=== PATIENT | male | born 1955 | race African-American/Black ===

== ENCOUNTER → 2017-10-17 | Outpatient (CLI) | payer MEDICARE ==
[2017-10-17] MEDS: GADOBUTROL 7.5 MMOL/7.5 ML VIAL IV (14:36)
== END | disposition home or self-care (01) ==
LOC: KCIC MRI 13:59
DX: M51.36 Other intervertebral disc degeneration, lumbar region (principal); M48.061 Spinal stenosis, lumbar region without neurogenic claudication; M41.86 Other forms of scoliosis, lumbar region; I25.10 Atherosclerotic heart disease of native coronary artery without angina pectoris; M51.46 Schmorl's nodes, lumbar region; J43.9 Emphysema, unspecified; I10 Essential (primary) hypertension; Z87.891 Personal history of nicotine dependence
CPT/HCPCS: 71250; 72158; A9585

== ENCOUNTER → 2017-10-24 | Outpatient (CLI) | payer MEDICARE ==
[~2017-10-24] MED LIST: IOHEXOL 180 MG/ML 10 ML VIAL.; methylPREDNISolone ACETATE 40 MG/ML VIAL.; methylPREDNISolone ACETATE 80 MG/ML VIAL.
== END | disposition home or self-care (01) ==
LOC: PNCL 10:44
DX: M51.16 Intervertebral disc disorders with radiculopathy, lumbar region (principal); M48.061 Spinal stenosis, lumbar region without neurogenic claudication; I10 Essential (primary) hypertension; M19.90 Unspecified osteoarthritis, unspecified site; F17.210 Nicotine dependence, cigarettes, uncomplicated; Z96.651 Presence of right artificial knee joint; Z98.890 Other specified postprocedural states; Z79.899 Other long term (current) drug therapy; Z72.89 Other problems related to lifestyle
CPT/HCPCS: 62323; J1030; J1040; Q9965

== ENCOUNTER → 2017-11-08 | Outpatient (CLI) | payer MEDICARE ==
[~2017-11-08] MED LIST changes: +LIDOCAINE 1% PF 2 ML VIAL.
== END ==
LOC: PNCL 10:52
DX: M48.061 Spinal stenosis, lumbar region without neurogenic claudication (principal); M51.16 Intervertebral disc disorders with radiculopathy, lumbar region
CPT/HCPCS: 62323; J1030; J1040; Q9965

== ENCOUNTER → 2017-12-01 | Outpatient (CLI) | payer MEDICARE ==
[~2017-12-01] MED LIST changes: -IOHEXOL 180 MG/ML 10 ML VIAL.; -LIDOCAINE 1% PF 2 ML VIAL.; +REGADENOSON 0.4 MG/5 ML DISP.SYRIN. IV; -methylPREDNISolone ACETATE 40 MG/ML VIAL.; -methylPREDNISolone ACETATE 80 MG/ML VIAL.
[2017-12-02] MEDS: REGADENOSON 0.4 MG/5 ML DISP.SYRIN. IV (09:03)
== END | disposition home or self-care (01) ==
LOC: NM 08:57
DX: I25.10 Atherosclerotic heart disease of native coronary artery without angina pectoris (principal); I10 Essential (primary) hypertension; J43.9 Emphysema, unspecified; F17.210 Nicotine dependence, cigarettes, uncomplicated; Z79.899 Other long term (current) drug therapy
CPT/HCPCS: 78452; 93017; 93306; 96374; 96375; 96376; A9500; J2785

== ENCOUNTER → 2018-06-29 | Outpatient (CLI) | payer MEDICARE ==
[~2018-06-29] MED LIST changes: +DOCU-109 PO; +GADOBUTROL 7.5 MMOL/7.5 ML VIAL IV ONE; +HYDR-2761 PO; +HYDR-2765 PO; +LISI-338 PO; +LOSA1TAB19 PO; +METH750T2 PO; +MULT1TAB52 PO; -REGADENOSON 0.4 MG/5 ML DISP.SYRIN. IV; +SIMV10TA3 PO
--- NOTE | 2018-06-29 15:46 | KCIC ---
MRI of the lumbar spine without and with contrast 06/29/2018 CLINICAL HISTORY: Low back pain which radiates down the left leg. TECHNIQUE: Unenhanced T1-weighted and T2-weighted sagittal and axial and inversion recovery sagittal images of the lumbar spine were obtained. After the intravenous administration of 7 cc of Gadavist, enhanced T1-weighted sagittal and axial images of the lumbar spine were obtained. FINDINGS: Comparison study is dated 10/17/2017. Very mild S-shaped curvature of the thoracolumbar spine is seen. Degenerative signal changes and loss of height are seen involving all of the disks of the lumbar spine. Degenerative signal changes are seen within the marrow surrounding these discs. The conus medullaris is within normal limits in morphology, position, and signal characteristics. No area of abnormal contrast enhancement is seen. At the T12-L1 disc space there is mild to moderate generalized disc bulge. This is eccentric to the right. Degenerative changes are seen involving the facet joints bilaterally. There is mild ligamentum flavum hypertrophy bilaterally. These findings when combined result in mild central spinal canal stenosis. No neural foraminal stenosis is seen. At the L1-2 disc space there is a mild to moderate generalized disc bulge. Degenerative changes are seen involving the facet joints bilaterally. There is moderate ligamentum flavum hypertrophy bilaterally. These findings when combined result in mild central spinal canal stenosis. No neural foraminal stenosis is seen. At the L2-3 disc space there is a moderate generalized disc bulge. Degenerative changes are seen involving the facet joints bilaterally. There is moderate ligamentum flavum hypertrophy bilaterally. These findings when combined result in moderate to severe central spinal canal stenosis. Mild to moderate bilateral neural foraminal stenosis is seen. At the L3-4 disc space there is a moderate generalized disc bulge. Degenerative changes are seen involving the facet joints bilaterally. There is moderate ligamentum flavum hypertrophy bilaterally. These findings when combined result in moderate right greater than left central spinal canal stenosis. Mild to moderate right greater than left neural foraminal stenosis is seen. At the L4-5 disc space there is a moderate generalized disc bulge. Degenerative changes are seen involving the facet joints bilaterally. There is moderate to severe ligamentum flavum hypertrophy bilaterally. There is prominence of the posterior epidural fat. These findings when combined result in mild central spinal canal stenosis. Mild to moderate right greater than left neural foraminal stenosis is seen. At the L5-S1 disc space there is a mild generalized disc bulge. Degenerative changes are seen involving the facet joints bilaterally. These findings do not result in significant central spinal canal stenosis. Since the previous examination there has been no significant interval change. IMPRESSION: The changes of degenerative disc disease are seen throughout the lumbar spine. These findings result in mild central spinal canal stenosis at T12-L1 and L1-2, moderate to severe central spinal canal stenosis at L2-3, moderate right greater than left central spinal canal stenosis at L3-4 and mild central spinal canal stenosis at L4-5. Mild to moderate bilateral neural foraminal stenosis is seen at L2-3. Mild to moderate right greater than left neural foraminal stenosis is seen at L3-4 and L4-5. Electronically signed by: Morris Branch MD (06/29/2018 3:42 PM) [facility]
== END | disposition home or self-care (01) ==
LOC: KCIC MRI 09:50
PROVIDERS: ATTEND Neurological Surgery
DX: M48.061 Spinal stenosis, lumbar region without neurogenic claudication (principal); M51.16 Intervertebral disc disorders with radiculopathy, lumbar region; M48.05 Spinal stenosis, thoracolumbar region
CPT/HCPCS: 72158; A9585

== ENCOUNTER → 2018-08-21 | Outpatient (CLI) | payer MEDICARE ==
[~2018-08-21] MED LIST changes: -GADOBUTROL 7.5 MMOL/7.5 ML VIAL IV ONE
--- NOTE | 2018-08-21 16:31 | EKG ---
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
[2018-08-21 16:36] LABS: BASO % 0 % (0-3); EOS # 0.1 x10^3/uL (0.0-0.7); EOS % 2 % (0-3); HEMATOCRIT 38.6 % (39.0-53.0); HEMOGLOBIN 12.7 g/dL (13.0-17.5); LYMPH # 3.2 x10^3/uL (1.0-4.8); LYMPH % 48 % (24-48); MEAN CORPUSCULAR HEMOGLOBIN 28 pg (25-35); MEAN CORPUSCULAR HGB CONC 33 g/dL (31-37); MEAN CORPUSCULAR VOLUME 87 fL (79-100); MONO # 0.5 x10^3/uL (0.0-1.1); MONO % 8 % (0-9); NEUT # 2.8 x10^3uL (1.8-7.7); NEUT % 42 % (31-73); PLATELET COUNT 193 x10^3/uL (140-400); RED BLOOD COUNT 4.46 x10^6/uL (4.30-5.70); RED CELL DISTRIBUTION WIDTH 15.7 % (11.5-14.5); WHITE BLOOD COUNT 6.7 x10^3/uL (4.0-11.0)
[2018-08-21 17:08] LABS: POTASSIUM 3.7 mmol/L (3.5-5.1)
[2018-08-21 17:34] LABS: ALBUMIN 3.7 g/dL (3.4-5.0); ALBUMIN/GLOBULIN RATIO 1.1 (1.0-1.7); CALCIUM 8.6 mg/dL (8.5-10.1); CREATININE 1.3 mg/dL (0.7-1.3); GFR 67.2; TOTAL BILIRUBIN 0.3 mg/dL (0.2-1.0)
== END | disposition home or self-care (01) ==
LOC: SURGPAT 14:35
PROVIDERS: ATTEND Neurological Surgery
DX: M48.061 Spinal stenosis, lumbar region without neurogenic claudication (principal); M47.816 Spondylosis without myelopathy or radiculopathy, lumbar region; R94.31 Abnormal electrocardiogram [ECG] [EKG]; I10 Essential (primary) hypertension
CPT/HCPCS: 36415; 80053; 85025; 87641; 93005

== ENCOUNTER 2018-09-01 07:15 | Observation (INO) | payer MEDICARE ==
--- NOTE | 2018-08-31 12:11 | HP ---
ADMIT DATE: 09/01/2018 DATE OF SURGERY: 09/01/2018 HISTORY OF PRESENT ILLNESS: The patient is a pleasant 63-year-old who I saw in 10/2013 and recommended lumbar surgery for low back, left buttock, posterior thigh and leg pain. At that time, he decided not to have surgery, but currently he has the same if not worse symptoms and would like to proceed with surgery. He notes pain in his lower back, which radiates into his left buttock and posterior thigh. The pain then radiates below his knee to his posterior leg. He feels numbness in his left foot, which is primarily across the dorsum of foot to the left great toe. The problem has been present for about 5 years. He is taking [place] to help control the pain. Bending, lifting or sitting increases his pain. He uses ice to help. He has been taking [place]. He had epidural steroid injections in 10/2017 without benefit. He had physical therapy in the past for the same problem without significant benefit. PAST MEDICAL HISTORY: Arthritis and hypertension. PAST SURGICAL HISTORY: Knee replacement in 2011. FAMILY HISTORY: Hypertension. SOCIAL HISTORY: He is retired. . Exercises weekly. Denies substance abuse. Smokes half pack per day and has for 40 years. Drinks 1 drink daily. Drinks coffee and soda. ALLERGIES: No known drug allergies. CURRENT MEDICATIONS: [place], losartan, simvastatin, Centrum Silver. REVIEW OF SYSTEMS: A 12-point review of systems was obtained and is noncontributory except for that mentioned above. PHYSICAL EXAMINATION: NEUROSURGERY EXAMINATION: GENERAL APPEARANCE: Alert, pleasant, no acute distress. HEAD: Normocephalic and atraumatic. SKIN: Warm and dry. MUSCULOSKELETAL: Lumbar paraspinal muscle bulk is normal, restricted range of motion of lumbar spine, igho-lm-wtpkolay tenderness of lower lumbar spine on palpation, normal range of motion of the lower extremities bilaterally. EXTREMITIES: No clubbing, cyanosis or edema. NEUROLOGIC: Alert and oriented x 3, normal recent and remote memory. Strength 5/5 in bilateral lower extremities, sensory was intact to light touch in bilateral lower extremities except for decrease in the dorsum of his right foot. Reflexes were present and symmetric in the lower extremities bilaterally, positive straight leg raising on the right, negative straight leg raising on the left, normal gait. IMAGING: I reviewed a lumbar MRI scan. On that study, there is moderately severe central canal stenosis again seen at L2-L3. At L3-L4, there is a moderate central canal stenosis present. At L4-L5, there is not central canal stenosis, but there is significant lateral recess stenosis on the left side. ASSESSMENT/ PLAN: At this point, he would like to move forward with surgery. He does have symptoms at this point, which are referable to the L5 nerve root and therefore, my plan is to decompress him at L2-L3 and L3-L4 as well as L4-L5 on the left. I would perform a left direct laminectomy at L2-L3 and L3-L4 as well as a hemilaminotomy and microdecompression at L4-L5 on the left. I spoke with him about the surgery, the risks involved. I spoke about the technique of the surgery and the expected postoperative course. He understands. He would like to go ahead. We will make the arrangements. YAJAIRA DUQUE MD DR: JEFF/corazon JOB#: [id number] / [id number] BRENNA
[2018-09-01] VITALS (8 sets, daily range): BP systolic 95–149; BP diastolic 43–84
[~2018-09-01] VITALS: Ht 170.2 cm; Wt 78.0 kg
[~2018-09-01 07:15] MED LIST changes: +BACITRACIN 50,000 UNIT in IV NORMAL SALINE 1000ML BAG 1,000 ML IRR ONE; -DOCU-109 PO; -HYDR-2765 PO; +HYDROmorphone 2 MG/ML VIAL IV PRN; +IV RINGERS,LACTATED 1000ML 1,000 ML IV SCH; +LIDOCAINE 1% PF 2 ML VIAL. ID PRN; -METH750T2 PO; +MORPHINE SULFATE 2 MG/ML VIAL. IV PRN; +ONDANSETRON PF 4 MG/2 ML VIAL. IV PRN; +PROCHLORPERAZINE 10 MG/2 ML VIAL. IV PRN; +PROPOFOL 100 ML IV ONE; +fentaNYL PF VIAL 100 MCG/2 ML VIAL IV PRN
[2018-09-01] MEDS ORDERED: GELATIN SPONGE SIZE 100. ONE (07:32)
[2018-09-01] MEDS ORDERED: KETOROLAC 60 MG/2 ML INJ FOR OR. ONE (07:32)
[2018-09-01] MEDS ORDERED: BUPIVAC MPF-EPI 0.5%-1:200000 30 ML VIAL. ONE (07:32)
[2018-09-01] MEDS ORDERED: THROMBIN TOPICAL 20,000 UNIT SPRAY.SYRN KIT TP ONE (07:33)
[2018-09-01] MEDS ORDERED: PHENYLEPHRINE 10 MG/ML VIAL. ONE (08:03)
[2018-09-01] MEDS ORDERED: DEXAMETHASONE SOD PHOS 20 MG/5 ML VIAL. ONE (08:03)
[2018-09-01] MEDS ORDERED: MIDAZOLAM HCL/PF 2 MG/2 ML VIAL. ONE (08:03)
[2018-09-01] MEDS ORDERED: ROCURONIUM 50 MG/5 ML VIAL. ONE (08:03)
[2018-09-01] MEDS ORDERED: ONDANSETRON PF 4 MG/2 ML VIAL. ONE (08:03)
[2018-09-01] MEDS ORDERED: PROPOFOL 20 ML IV ONE (08:03)
[2018-09-01] MEDS ORDERED: LIDOCAINE 2% PF 5 ML VIAL. ONE (08:03)
[2018-09-01] MEDS ORDERED: REMIFENTANIL 2 MG VIAL. IV ONE (08:04)
[2018-09-01] MEDS ORDERED: 0.9 % SODIUM CHLORIDE 20 ML VIAL. IJ ONE ×2 (08:04)
[2018-09-01] MEDS ORDERED: GLYCOPYRROLATE 1 MG/5 ML VIAL. ONE (08:59)
[2018-09-01] MEDS ORDERED: DESFLURANE > 120 MINUTES IH ONE (09:27)
[2018-09-01] MEDS ORDERED: POTASSIUM CL 20MEQ D5-0.45NACL 1,000 ML IV SCH (11:39)
[2018-09-01] MEDS ORDERED: MAGNESIUM HYDROXIDE 2,400 MG/30 ML ORAL.SUSP. PO PRN (11:45)
[2018-09-01] MEDS ORDERED: CALCIUM CARBONATE 500 MG TAB.CHEW PO PRN (11:45)
[2018-09-01] MEDS ORDERED: 0.9 % SODIUM CHLORIDE 10 ML DISP.SYRIN. IV PRN (11:45)
[2018-09-01] MEDS ORDERED: MAG HYDROX/ALUMINUM HYD/SIMETH 30 ML ORAL.SUSP PO PRN (11:45)
[2018-09-01] MEDS ORDERED: NALOXONE 0.4 MG/ML VIAL. IV PRN (11:45)
[2018-09-01] MEDS ORDERED: ONDANSETRON PF 4 MG/2 ML VIAL. IV PRN (11:45)
[2018-09-01] MEDS ORDERED: HYDROcodone/APAP 7.5/325MG 1 TAB TABLET PO PRN (11:45)
[2018-09-01] MEDS ORDERED: ZOLPIDEM 5 MG TABLET. PO PRN (11:45)
[2018-09-01] MEDS ORDERED: ACETAMINOPHEN 325 MG TABLET. PO PRN (11:45)
[2018-09-01] MEDS ORDERED: diphenhydrAMINE HCL 25 MG CAPSULE PO PRN (11:45)
[2018-09-01] MEDS ORDERED: fentaNYL PF VIAL 100 MCG/2 ML VIAL IV PRN (11:45)
--- NOTE | 2018-09-01 12:35 | NUR ---
Arrived to unit by bed from PACU. Alert and oriented x's 4. No c/o at this time. Able to move all extremities without difficulty. Lower back dressing intact with minimal drainage. Ice pack applied. Pedal pulses+ bilaterally. JOSIE's and KAILA's on bilaterally. IVF's intact and infusing. Oriented to room and controls. Side rails up x's 2 with call light in reach. Spouse and daughter at bedside. Cont. monitor.
[2018-09-01] MEDS: LOSARTAN POTASSIUM 50 MG TABLET. PO SCH (13:04)
[2018-09-01] MEDS: hydroCHLOROthiazide 12.5 MG CAPSULE PO SCH (13:05)
[2018-09-01] MEDS: METHOCARBAMOL 750 MG TABLET PO SCH ×2 (13:42→20:12)
[2018-09-01] MEDS: HYDROcodone/APAP 7.5/325MG 1 TAB TABLET PO PRN ×2 (13:42→20:11)
--- NOTE | 2018-09-01 15:13 | NUR ---
Transferred to room 444 by bed. Report called to Alison KEYES.
--- NOTE | 2018-09-01 17:16 | NUR ---
pt arrived to unit at 1500 via bed from 4S. pt is in stable condition. pt is alert and oriented. pt is not complaining of any pain at this time. pt is on RA. pt has call light within reach. dressing has scant amount of shadowing on dressing. pt has jennifer thigh high robert hose and jennifer jonas's on. will continue to monitor.
[2018-09-01] MEDS: DOCUSATE SODIUM 100 MG CAPSULE. PO SCH (20:12)
[2018-09-01] MEDS ORDERED: SIMVASTATIN 20 MG TABLET PO SCH (21:00)
[2018-09-02 03:00] VITALS: BP 94/51
[2018-09-02] MEDS: HYDROcodone/APAP 7.5/325MG 1 TAB TABLET PO PRN ×2 (03:16→10:37)
[2018-09-02 07:00] VITALS: BP 159/85
[2018-09-02] MEDS ORDERED: MULTIVITAMIN with MINERAL TABLET. PO SCH (09:00)
[2018-09-02] MEDS: hydroCHLOROthiazide 12.5 MG CAPSULE PO SCH (10:31)
[2018-09-02] MEDS: LOSARTAN POTASSIUM 50 MG TABLET. PO SCH (10:31)
[2018-09-02] MEDS: DOCUSATE SODIUM 100 MG CAPSULE. PO SCH (10:31)
[2018-09-02] MEDS: METHOCARBAMOL 750 MG TABLET PO SCH (10:32)
[2018-09-02] MEDS ORDERED: METH750T2 PO (10:40)
[2018-09-02] MEDS ORDERED: HYDR-2765 PO (10:40)
[2018-09-02] MEDS ORDERED: DOCU-109 PO (10:40)
--- NOTE | 2018-09-02 10:43 | SNU/HH DC ---
DISCHARGE WITH HOME HEALTH DISCHARGE INFORMATION: Discharge Date: Sep 02, 2018 Condition on Discharge: Stable CODE STATUS: Code Status: Full HOME HEALTH: Face to Face: I certify this patient is under my care and that I, or a nurse practitioner or physician's advertising assistant working with me, had a face to face encounter that meets the physician face to face encounter requirements with this patient on []. [facility] For: Wound Care Physical Therapy For: Evalulation/Treatment POST DISCHARGE ORDERS: Activity Instructions for Disc: Avoid exertion Bathing Instructions: Shower-keep dressing dry DIET AFTER DISCHARGE: Regular Wound/Incision Care: Ice to area for comfort, Change dressing, Reinforce dressing PRN Other wound/incision instructi: may remove dressing after 48 hours if dry FOLLOW-UP: Follow up with: Dr. Duque in 2 weeks [phone] CERTIFICATION STATEMENT: Certification Statement: Certification Statement: Based on the above finding, I certify that this patient is confined to the home and needs intermittent assisted care, physical therapy and/or speech therapy, or continues to need occupational therapy.~ This patient is under my care, and I have initiated the establishment of the plan of care.~ This patient will be followed by myself or a community physician who will periodically review the plan of care. Home Meds Active Scripts Docusate Sodium (COLACE) 100 Mg Capsule, 100 MG PO BID for constipation, #60 CAP Prov:YAJAIRA DUQUE MD 09/02/18 Methocarbamol (METHOCARBAMOL) 750 Mg Tablet, 750 MG PO TID for muscle spasms, # 60 TAB Prov:YAJAIRA DUQUE MD 09/02/18 Hydrocodone Bit/Acetaminophen (HYDROCODONE-APAP 7.5-325 ) 1 Tab Tablet, 1 TAB PO PRN Q6HRS PRN for PAIN MODERATE, #40 TAB Prov:YAJAIRA DUQUE MD 09/02/18 Reported Medications Multivitamin (MULTIVITAMINS) 1 Each Tablet, 1 EACH PO DAILY for SUPPLEMENT, TAB 08/22/18 Losartan/Hydrochlorothiazide (LOSARTAN-HCTZ 50-12.5 MG TAB) 1 Each Tablet, 1 EACH PO DAILY for CONTROL BP, TAB 08/22/18 Simvastatin (SIMVASTATIN) 10 Mg Tablet, 20 MG PO QHS for CHOLESTEROL CONTROL, # 30 TAB 5 Refills 10/17/17 Discontinued Reported Medications Hydrocodone Bit/Acetaminophen (HYDROCODONE-APAP 5-325 ) 1 Each Tablet, 1 TAB PO PRN Q6HRS PRN for PAIN, TAB 0 Refills 10/24/17 YAJAIRA DUQUE MD Sep 02, 2018 10:43
[2018-09-02 11:00] VITALS: BP 140/76
--- NOTE | 2018-09-02 15:16 | NUR ---
Pt was given all discharge instructions, follow up information, new teaching and prescriptions. Pt is stable. Alert x4. Instructions were given to daughter and significant other, on dressing changes and new medications. Pt will follow up with Dr. Wang in 2 weeks. Pt will return home with his daughter RN, helping with dressing changes. All belongings left with pt at time of discharge. Pt denied the need for home health services at this time. Pt left at 1256, via wheelchair, escorted by hospital ANIMAL KEEPER and family.
--- NOTE | 2018-09-04 17:57 | OP ---
DATE OF SURGERY: 09/01/2018 PREOPERATIVE DIAGNOSIS: Lumbar spinal stenosis, L2-L3, L3-L4 and left L4-L5 with left lumbar radiculopathy. POSTOPERATIVE DIAGNOSIS: Lumbar spinal stenosis, L2-L3, L3-L4 and left L4-L5 with left lumbar radiculopathy. OPERATION PERFORMED: Left direct laminectomy, L2-L3, L3-L4; hemilaminotomy with decompression of dura and nerve root, left L4-L5. The operation was done with EMG monitoring, SSEP monitoring, fluoroscopy, microscopic dissection. SURGEON: Donny Duque M.D. SUCTION DRUM DRIER OPERATOR: LAURA Raman, assisted with the surgery. She assisted with the exposure, the microdecompression as well as the closure. OPERATIVE INDICATIONS: The patient is a very pleasant 63-year-old who developed intractable back and left leg pain, which progressively worsened despite epidural steroid injections and physical therapy. He had above-mentioned findings and imaging studies and I recommended lumbar microsurgery. I did discuss with him the surgery and the risks as well as the technique of the operation. He wished to go ahead. DESCRIPTION OF PROCEDURE: Following general endotracheal anesthesia, the patient was positioned prone on the Suleman table. Lumbar region prepped and draped in standard fashion. JOSIE hose and AV impulse boots were applied for DVT prophylaxis. A microscope was draped. Fluoroscopy was draped and brought into the field. Monitoring was established. Ancef 2 g was given less than 1 hour prior to the initiation of surgery. Using fluoroscopic guidance, an incision was made extending from L2 to L5. I dissected down skin and subcutaneous tissue, reflected the paraspinal muscles and placed a [place] micro disc retractor exposing L2-L3 and L3-L4, brought in the high speed air drill and burred down a generous hemilaminotomy on the left at L2-L3. I tilted the patient away from nh and drilled across the midline and then I peeled and trimmed away thickened ligamentum flavum from medial to laterally and also performed a partial foraminotomy. I palpated the disc which was bulging slightly, but very firm and no discectomy was warranted. I did use small amounts of bone wax as well as a bipolar cautery judiciously and I had an excellent decompression at this level. I performed the identical operation at L3-L4 with the similar findings. Following this, I moved the retractor inferiorly and exposed L4-L5 and again through the microscope, I burred down a very generous hemilaminotomy and partial foraminotomy and then trimmed away thickened ligamentum flavum and widened this with the 2.5 Fehling Kerrison rongeur and then peeled away the thickened ligamentum flavum from medial to lateral and fully decompressed the entire region, removing the ligament. I retracted the root medially there. I coagulated some of the epidural veins, palpated the disc and no discectomy was warranted. At this point, I had an excellent decompression at all 3 levels. I irrigated copiously with antibiotic solution. I then closed the wound in layers with absorbable sutures. The skin was closed with 4-0 subcuticular stitch. The operation went very well and the patient was taken uneventfully to recovery room in excellent condition. I was quite pleased with the surgery. DONNY DUQUE MD DR: JEFF/corazon JOB#: [id number] / [id number] BRENNA
== END 2018-09-02 12:55 | disposition home health service (06) ==
LOC: SURG 07:15 → 4 SOUTHEST 11:25 → 4 NORTH 15:55
PROVIDERS: ADMIT Neurological Surgery; ATTEND Neurological Surgery
DX: M48.062 Spinal stenosis, lumbar region with neurogenic claudication (principal); M54.16 Radiculopathy, lumbar region; M19.90 Unspecified osteoarthritis, unspecified site; I10 Essential (primary) hypertension; Z96.659 Presence of unspecified artificial knee joint; Z82.49 Family history of ischemic heart disease and other diseases of the circulatory system; Z87.891 Personal history of nicotine dependence
CPT/HCPCS: 63047; 63048; 76000; 88304; 88311; 97116; 97162; 97530; A7015; G0378; G0379; G8978; G8979; G8980; J0696; J1100; J1885; J2001; J2250; J2405; J2704; J3490; J7030; J7120

== ENCOUNTER → 2019-05-28 | Outpatient (CLI) | payer MEDICARE ==
[~2019-05-28] MED LIST changes: -BACITRACIN 50,000 UNIT in IV NORMAL SALINE 1000ML BAG 1,000 ML IRR ONE; +DOCU-109 PO; +HYDR-2765 PO; -HYDROmorphone 2 MG/ML VIAL IV PRN; -IV RINGERS,LACTATED 1000ML 1,000 ML IV SCH; -LIDOCAINE 1% PF 2 ML VIAL. ID PRN; +METH750T2 PO; -MORPHINE SULFATE 2 MG/ML VIAL. IV PRN; -ONDANSETRON PF 4 MG/2 ML VIAL. IV PRN; -PROCHLORPERAZINE 10 MG/2 ML VIAL. IV PRN; -PROPOFOL 100 ML IV ONE; +SIMV10TA15 PO; -SIMV10TA3 PO; -fentaNYL PF VIAL 100 MCG/2 ML VIAL IV PRN
--- NOTE | 2019-05-28 09:29 | CARD ---
MR#: [id number] Date of Study: 05/28/2019 Ordering Physician: GERA SHIN, Referring Physician: GERA SHIN Tech: Rula Oh RDCS APPROVED REPORT EXAM: Two-dimensional and M-mode echocardiogram with Doppler and color Doppler. Other Information Quality : Good INDICATION Chest Pain 2D DIMENSIONS RVDd2.4 (2.9-3.5cm)Left Atrium(2D)3.0 (1.6-4.0cm) IVSd0.9 (0.7-1.1cm)Aortic Root(2D)2.5 (2.0-3.7cm) LVDd4.5 (3.9-5.9cm)LVOT Diameter2.0 (1.8-2.4cm) PWd1.0 (0.7-1.1cm)LVDs3.2 (2.5-4.0cm) FS (%) 30.0 %SV53.7 ml LVEF(%)57.4 (>50%) Aortic Valve AoV Peak Bishnu.161.5cm/sAoV VTI28.8cm AO Peak GR.10.4mmHgLVOT Peak Bishnu.114.4cm/s AO Mean GR.4mmHgAVA (VMAX)2.18cm2 GIOVANI (VTI)2.50cm2 Mitral Valve MV E Jkaduhic089.5cm/sMV DECEL OBYB255uk MV A Asbdksej32.6cm/sE/A Ratio2.4 Tricuspid Valve TR P. Jieqlpqb739pr/sRAP NUERXFUW3lmZp TR Peak Gr.45stUaGKWT41nvZf Pulmonary Vein S1 Hcmdrwxk18.1cm/sD2 Cssphhdw18.3cm/s LEFT VENTRICLE The left ventricle is normal size. There is normal left ventricular wall thickness. The left ventricu lar systolic function is normal and the ejection fraction is within normal range. The Ejection Fracti on is 55-60%. There is normal LV segmental wall motion. Transmitral Doppler flow pattern is Grade II- pseudonormal filling dynamics. RIGHT VENTRICLE The right ventricle is normal size. The right ventricular systolic function is normal. ATRIA The left atrium size is normal. The right atrium size is normal. The interatrial septum is intact wit h no evidence for an atrial septal defect or patent foramen ovale as noted on 2-D or Doppler imaging. AORTIC VALVE The aortic valve is calcified but opens well. Doppler and Color Flow revealed no significant aortic r egurgitation. There is no significant aortic valvular stenosis. MITRAL VALVE The mitral valve is calcified but opens well. Mitral annular calcification is mild. There is no evide nce of mitral valve prolapse. There is no mitral valve stenosis. Doppler and Color-flow revealed trac e to mild mitral regurgitation. TRICUSPID VALVE The tricuspid valve is normal in structure and function. Doppler and Color Flow revealed trace to mil d tricuspid regurgitation. The PA pressure was estimated at 27 mmHg. There is no tricuspid valve sten osis. PULMONIC VALVE The pulmonic valve is not well visualized. Doppler and Color Flow revealed mild pulmonic valvular reg urgitation. There is no pulmonic valvular stenosis. GREAT VESSELS The aortic root is normal in size. The ascending aorta is normal in size. The IVC is normal in size a nd collapses >50% with inspiration. PERICARDIAL EFFUSION There is no evidence of significant pericardial effusion. Critical Notification Critical Value: No <Conclusion> The left ventricle is normal size. The left ventricular systolic function is normal and the ejection fraction is within normal range. The Ejection Fraction is 55-60%. Doppler and Color Flow revealed no significant aortic regurgitation. There is no significant aortic valvular stenosis. Doppler and Color-flow revealed trace to mild mitral regurgitation. Doppler and Color Flow revealed trace to mild tricuspid regurgitation. The PA pressure was estimated at 27 mmHg. Signed by : Lucien Rubio MD Electronically Approved : 05/28/2019 09:29:28
--- NOTE | 2019-05-28 11:54 | RAD ---
MR#: [id number] Date of Study: 05/28/2019 Ordering Physician: GERA SHIN, Referring Physician: SIRENA KWONG Tech: RT Mary Alice (Jessy) (N) APPROVED REPORT Test Type: Exercise Stress Nurse/Tech: Dorcas Severino R.N. Test Indications: chest pain Cardiac History: htn, smoker Medications: see ehr Medical History: see ehr Resting ECG: sb Resting Heart Rate: 49 bpm Resting Blood Pressure: 116/67mmHg Nurse/Tech Notes pt c/o chest pressure before exercise, no change throughout, lungs cta, heart tones regular Consent: The procedure was explained to the patient in lay terms. Informed consent was witnessed. Mushtaq eout was entered into [facility]. History and Stress Test performed by FARHANA Sibley Stress Symptoms No chest pain or symptoms. POST EXERCISE Reason for Termination: Reached target heart rate Target HR: Yes Max HR: 136 bpm 88% of Maximum Predicted HR: 155 bpm Exercise duration: 9:15 min:sec, 3 Stage Exercise capacity: 10.0METs Max Blood Pressure: 161/73mmHg Blood Pressure response to exercise: Normal blood pressure response during stress. Heart Rate response to exercise: normal Chest Pain: No. Arrhythmia: No. INTERPRETATION Stress EKG Conclusion: The resting EKG showed a sinus bradycardia with mild nonspecific ST-T wave sruthi nges. The stress EKG showed no significant changes over baseline. No EKG evidence of stressed induced ischemia. Imaging Protocol IMAGE PROTOCOL: Rest Tc-99m/stress Tc-99m 1 day Rest: Stress: Viability: Radiopharm.Tc99m PgszyltohZb42c Sestamibi Dose9.5mCi 28.7mCi Duration 15min. 10min. Img Date 05/28/2019 05/28/2019 Inj-Img Dcdd31eza. 60min. Rest Admin Site:IV - Right AntecubitalAdministrator:FARHANA Sibley Stress Admin Site: IV - Right AntecubitalAdministrator: FARHANA Sibley STRESS DATA End Diast. Vol.76.0mlAv. Heart Rate65.0bpm End Syst. Vol.24.0mlCO Index BSA0.0L/min Myocardial Haiw852.0gEject. Irymcosc18.0% Stress Rates Pk. Fill Rate2.49EDV/secLVtime Pk. Fill 221.34msec Pk. Empty Rate3.64ESV/secLVtime Pk. Myzun086.97msec 1/3 Pk. Fill1.08EDV/sec Stress Scores Regional WT0.00Summed WT0.00 Regional WM0.00Summed WM3.00 LV Perfusion The stress scans showed no significant defects. The rest scans showed no significant defects. Nuclear imaging shows no reversible ischemia or infarct. Wall Motion Left ventricular systolic function was normal with an ejection fraction of 68%. LV Perf. Quant 17 Seg. SSS0.00 17 Seg. SRS1.00 17 Seg. SDS0.00 Stress Defect Extent (% LAD)0.00Rest Defect Extent (% LAD)0.00Rev. Defect Extent (% LAD)0.00 Stress Defect Extent (% LCX) 0.00Rest Defect Extent (% LCX)0.00Rev. Defect Extent (% LCX)0.00 Stress Defect Extent (% RCA)0.00Rest Defect Extent (% RCA)0.00Rev. Defect Extent (% RCA)0.00 Stress Defect Extent (% RICHARD)0.00Rest Defect Extent (% RICHARD)0.00Rev. Defect Extent (% RICHARD)0.00 Conclusion 1. Good exercise tolerance. 2. No chest pain with exertion. 3. No EKG evidence of stressed induced ischemia. 4. Nuclear imaging shows no reversible ischemia or infarct. 5. Normal left ventricular systolic function with an ejection fraction of 68%. 6. Low risk treadmill nuclear stress test. Signed by : Lucien Rubio MD Electronically Approved : 05/28/2019 11:53:31
== END | disposition home or self-care (01) ==
LOC: NM 07:59
PROVIDERS: ATTEND Internal Medicine Cardiovascular Disease
DX: I08.8 Other rheumatic multiple valve diseases (principal); I10 Essential (primary) hypertension; E78.00 Pure hypercholesterolemia, unspecified; Z79.01 Long term (current) use of anticoagulants; Z87.891 Personal history of nicotine dependence
CPT/HCPCS: 78452; 93017; 93306; A9500

== ENCOUNTER → 2019-12-25 | Outpatient (CLI) | payer MEDICARE ==
[~2019-12-25] MED LIST changes: +MULT-445 PO; -MULT1TAB52 PO
--- NOTE | 2019-12-25 12:43 | CARD ---
MR#: [id number] Date of Study: 12/25/2019 Ordering Physician: GERA SHIN, Referring Physician: GERA SHIN Tech: Rula Oh RDCS APPROVED REPORT EXAM: Two-dimensional and M-mode echocardiogram with Doppler and color Doppler. Other Information Quality : Good INDICATION Coronary Artery Calcification on CT 2D DIMENSIONS RVDd2.9 (2.9-3.5cm)Left Atrium(2D)3.0 (1.6-4.0cm) IVSd1.0 (0.7-1.1cm)Aortic Root(2D)2.8 (2.0-3.7cm) LVDd4.8 (3.9-5.9cm)LVOT Diameter2.0 (1.8-2.4cm) PWd0.8 (0.7-1.1cm)LVDs2.4 (2.5-4.0cm) FS (%) 30.0 %SV84.8 ml LVEF(%)60.0 (>50%) Aortic Valve AoV Peak Bishnu.171.1cm/sAoV VTI29.8cm AO Peak GR.11.7mmHgLVOT Peak Bishnu.124.7cm/s LVOT VTI 24.84cmAO Mean GR.5mmHg GIOVANI (VMAX)2.61ut6HOX (VTI)2.60cm2 Mitral Valve MV E Ffennlun127.6cm/sMV DECEL NOTI489pv MV A Ovnilehm32.8cm/sMV QQT44nx E/A Ratio1.8MVA (PHT)5.72cm2 TDI E/Lateral E'9.0E/Medial E'18.7 Tricuspid Valve TR P. Dqltymea677wd/sRAP GJBHXFEP6oiKz TR Peak Gr.58slAoNDJW77loGl Pulmonary Vein S1 Skioaykh44.4cm/sD2 Pyyfawhy84.7cm/s LEFT VENTRICLE The left ventricle is normal size. There is normal left ventricular wall thickness. The left ventricu lar systolic function is normal. The Ejection Fraction is 55-60%. There is normal LV segmental wall m otion. The left ventricular diastolic function and filling is normal for age. RIGHT VENTRICLE The right ventricle is normal size. The right ventricular systolic function is normal. ATRIA The left atrium size is normal. The right atrium size is normal. The interatrial septum is intact wit h no evidence for an atrial septal defect or patent foramen ovale as noted on 2-D or Doppler imaging. AORTIC VALVE The aortic valve is calcified but opens well. Doppler and Color Flow revealed no significant aortic r egurgitation. There is no significant aortic valvular stenosis. MITRAL VALVE The mitral valve is calcified but opens well. There is no evidence of mitral valve prolapse. There is no mitral valve stenosis. Doppler and Color-flow revealed trace mitral regurgitation. TRICUSPID VALVE The tricuspid valve is normal in structure and function. Doppler and Color Flow revealed trace tricus pid regurgitation. The PA pressure was estimated at 21 mmHg. There is no tricuspid valve stenosis. PULMONIC VALVE The pulmonic valve is not well visualized. Doppler and Color Flow revealed trace pulmonic valvular re gurgitation. There is no pulmonic valvular stenosis. GREAT VESSELS The aortic root is normal in size. The ascending aorta is normal in size. The IVC is normal in size a nd collapses >50% with inspiration. PERICARDIAL EFFUSION There is no evidence of significant pericardial effusion. Critical Notification Critical Value: No <Conclusion> The left ventricular systolic function is normal. The Ejection Fraction is 55-60%. There is normal LV segmental wall motion. Trace mitral regurgitation. Trace tricuspid regurgitation. The PA pressure was estimated at 21 mmHg. There is no evidence of significant pericardial effusion. Signed by : Gera Shin, Electronically Approved : 12/25/2019 12:43:01
== END | disposition home or self-care (01) ==
LOC: ECHO 10:43
PROVIDERS: ATTEND Internal Medicine Cardiovascular Disease
DX: I08.0 Rheumatic disorders of both mitral and aortic valves (principal); I25.10 Atherosclerotic heart disease of native coronary artery without angina pectoris
CPT/HCPCS: 93306

== ENCOUNTER 2020-01-30 18:59 | Emergency (ER) | payer MEDICARE ==
[~2020-01-30] VITALS: Ht 170.2 cm; Wt 75.0 kg
[2020-01-30 19:51] VITALS: BP 118/74
[2020-01-30] MEDS ORDERED: LIDOCAINE 1% Multi-Dose 20 ML VIAL. INJ ONE (20:30)
[2020-01-30] MEDS ORDERED: LIDOCAINE/EPI/TETRACAINE TOPICAL GEL 3 ML. TP ONE (20:30)
--- NOTE | 2020-01-30 21:06 | RAD ---
PROCEDURE: FOOT LEFT 3V STUDY DATE: 01/30/2020 CLINICAL INDICATION / HISTORY: Reason: laceration / Spl. Instructions: / History: . TECHNIQUE: AP, lateral and oblique views of the left foot. COMPARISON: None FINDINGS: No fracture or dislocation is identified. The bone density is normal. The joint space widths are maintained, and there are no erosions to suggest an inflammatory arthropathy. Mild irregularity to the soft tissues overlying the first MTP joint is present, suggestive of a laceration. Otherwise no soft tissue abnormality is seen. IMPRESSION: Possible laceration over the first MTP joint. No associated acute osseous abnormality. Electronically signed by: Kyle Murphy MD (01/30/2020 9:03 PM) [facility] [place]
[2020-01-30] MEDS ORDERED: CEPH500T PO (22:34)
--- NOTE | 2020-01-30 22:34 | PHYS DOC ---
Past Medical History Past Medical History: High Cholesterol, Hypertension Past Surgical History: Other Additional Past Surgical Histo: back Smoking Status: Current Every Day Smoker Alcohol Use: Occasionally General Adult EDM: Chief Complaint: LACERATION/AVULSION HPI: HPI: Patient is a 64 year old male who presents to the ED today with left foot and left johnson laceration, patient reports dropping an air compressor accidentally on the right lower extremity. Review of Systems: Review of Systems: Constitutional: Denies fever or chills. [] Musculoskeletal: Denies back pain or joint pain. [] Integument: Reports laceration to the left foot and left johnson Neurologic: Denies headache, focal weakness or sensory changes. [] Psychiatric: Denies depression or anxiety. [] Heart Score: Risk Factors: Risk Factors: DM, Current or recent (<one month) smoker, HTN, HLP, family history of CAD, obesity. Risk Scores: Score 0 - 3: 2.5% MACE over next 6 weeks - Discharge Home Score 4 - 6: 20.3% MACE over next 6 weeks - Admit for Clinical Observation Score 7 - 10: 72.7% MACE over next 6 weeks - Early Invasive Strategies Current Medications: Current Medications Medications (Trade) Dose Ordered Sig/Dwayne Start Time Stop Time Status Last Admin Dose Admin Lidocaine HCl (Lidocaine 1% 20ml Vial) 20 ml 1X ONCE 01/30/20 20:30 01/30/20 20:31 DC 01/30/20 20:30 20 ML Tetracaine/ Epinephrine/ Lidocaine (Let (Djrb-Xhsmuql-Tpyha) Gel) 9 ml 1X ONCE 01/30/20 20:30 01/30/20 20:31 DC 01/30/20 20:30 9 ML Allergies: Allergies: Allergies Coded Allergies Type Severity Reaction Last Updated Verified No Known Drug Allergies 10/17/17 No Physical Exam: PE: Constitutional: Well developed, well nourished, no acute distress, non-toxic appearance. [] Skin: Left distal johnson with a laceration approximately 4 cm long, there is no obvious tendon involvement. Left great toe ventral aspect at the MTP joint with a laceration approximately 6 cm long, there is no obvious tendon involvement. Patient able to flex and extend the left toes. +2 left pedal pulse. Cap refill less than 2 seconds to left toes. Back: No tenderness, no CVA tenderness. [] Extremities: No tenderness, no cyanosis, no clubbing, ROM intact, no edema. [] Neurologic: Alert and oriented X 3, normal motor function, normal sensory function, no focal deficits noted. [] Psychologic: Affect normal, judgement normal, mood normal. [] Current Patient Data: Vital Signs: Vital Signs Date Time Temp Pulse Resp B/P (MAP) Pulse Ox O2 Delivery O2 Flow Rate FiO2 01/30/20 19:51 98.1 65 16 118/74 (89) 97 Room Air 98.1 EKG: EKG: [] Radiology/Procedures: Radiology/Procedures: Laceration/Wound Repair Wound Location: Left great toe and left lower johnson Wound's Depth, Shape: Vertical Wound Length (cm): 4 cm on the left johnson, 6 cm on the left great toe Wound Explored: clean Irrigated w/ Saline (ccs): 500 Betadine Prep?: yes Anesthesia: Let solution then 1% of lidocaine Volume Anesthetic (ccs): 8 cc of let solution and then later on 3 cc of lidocaine Wound Repaired With: Left johnson laceration was repaired with 6 interrupted sutures using three-point 0 Ethilon, left great toe internal lacerations were done with 3.0 Vicryl, interrupted sutures were used. Left great toe exterior laceration was closed with 11 interrupted sutures using 3.0 and five-point 0 Ethilon. The wounds were covered with nonstick dressing Course & Med Decision Making: Course & Med Decision Making Pertinent Labs and Imaging studies reviewed. (See chart for details) [] This is a 64-year-old male patient presenting to the ED today with left lower johnson and left foot lacerations. Left foot x-rays were negative for any acute findings. Lacerations were closed by me as noted in procedures. Wound care instructions and return precautions provided. Tetanus up-to-date. Dragon Disclaimer: Dragon Disclaimer: This electronic medical record was generated, in whole or in part, using a voice recognition dictation system. Departure Departure Impression: Primary Impression: Laceration of left foot Qualified Codes: S91.312A - Laceration without foreign body, left foot, initial encounter Additional Impression: Laceration of left leg Qualified Codes: S81.812A - Laceration without foreign body, left lower leg, initial encounter Disposition: 01 HOME, SELF-CARE Condition: STABLE Referrals: Andres ANDREA MD (PCP) Follow-up with your own doctor or the emergency room in 7 days for stitches removal Patient Instructions: Laceration Care, Adult Additional Instructions: You have lacerations to your left lower extremity. Keep the areas clean and dry. You can shower and wash the area with soap and water but do not soak the areas. Apply Neosporin to the areas twice a day. Follow-up with the ED in 7-10 days for stitches removal. Please return to the ED at any point the wound shows signs of infection including but not limited to increased redness, warmth, yellow drainage from the area or any other concerning symptoms. Take the prescribed antibiotics that was sent to your pharmacy until they are completed. Scripts Cephalexin (CEPHALEXIN) 500 Mg Tablet 1 TAB PO TID, #30 TAB Prov: MACKENZIE TRIPATHI APRN 01/30/20 Justicifation of Admission Dx: Justifications for Admission: Justification of Admission Dx: N/A MACKENZIE TRIPATHI APRN Jan 30, 2020 22:34
== END 2020-01-30 23:42 | disposition home or self-care (01) ==
LOC: ER 18:59
DX: S81.812A Laceration without foreign body, left lower leg, initial encounter (principal); S91.312A Laceration without foreign body, left foot, initial encounter; E78.00 Pure hypercholesterolemia, unspecified; I10 Essential (primary) hypertension; F17.200 Nicotine dependence, unspecified, uncomplicated; W20.8XXA Other cause of strike by thrown, projected or falling object, initial encounter; Y93.89 Activity, other specified; Y92.89 Other specified places as the place of occurrence of the external cause; Y99.8 Other external cause status
CPT/HCPCS: 12004; 73630; 99283; J3490

== ENCOUNTER → 2020-04-10 | Outpatient (CLI) | payer MEDICARE ==
[~2020-04-10] MED LIST changes: +CEPH500T PO
--- NOTE | 2020-04-10 16:10 | KCIC ---
EXAM: Cervical spine, 3 views. HISTORY: Hand numbness. COMPARISON: None. FINDINGS: 3 views of the cervical spine are obtained. There is mild cervical kyphosis. There is minimal retrolisthesis of C6 on C7. There is degenerative endplate remodeling and disc space narrowing predominantly at C4-C5, and to a lesser extent, C5-C6 and C6-C7. There is multilevel facet arthropathy. There is no fracture. IMPRESSION: 1. Multilevel degenerative change involving the cervical spine, primarily at the mid lower cervical levels. 2. No acute osseous finding. Electronically signed by: Cheryl Larson MD (04/10/2020 4:08 PM) [id number]
== END ==
LOC: KCIC 14:32
PROVIDERS: ATTEND Family Medicine
DX: M47.812 Spondylosis without myelopathy or radiculopathy, cervical region (principal); M48.02 Spinal stenosis, cervical region; M43.12 Spondylolisthesis, cervical region; R20.0 Anesthesia of skin
CPT/HCPCS: 72040

== ENCOUNTER → 2020-08-05 | Outpatient (CLI) | payer MEDICARE ==
[~2020-08-05] MED LIST changes: +CHOL500050 PO; +HYDR12.575 PO; -LISI-338 PO; +LISI-517 PO; +LOSA100T14 PO; +METH-562 PO; -METH750T2 PO; +NITR0.4T24 SL
== END ==
LOC: LAB 10:54
PROVIDERS: ATTEND Orthopaedic Surgery
DX: Z01.812 Encounter for preprocedural laboratory examination (principal); G56.03 Carpal tunnel syndrome, bilateral upper limbs; Z20.822 Contact with and (suspected) exposure to COVID-19
CPT/HCPCS: U0003

== ENCOUNTER 2020-08-08 06:10 | Day surgery (SDC) | payer MEDICARE ==
[~2020-08-08] VITALS: Ht 165.1 cm; Wt 78.0 kg
[~2020-08-08 06:10] MED LIST changes: +HYDROmorphone 2 MG/ML VIAL IVP PRN; +IV RINGERS,LACTATED 1000ML 1,000 ML IV SCH; +MORPHINE SULFATE 2 MG/ML VIAL. IVP PRN; +PROCHLORPERAZINE 10 MG/2 ML VIAL. IVP PRN; +fentaNYL PF VIAL 100 MCG/2 ML VIAL IVP PRN
[2020-08-08] MEDS ORDERED: fentaNYL PF VIAL 100 MCG/2 ML VIAL ONE (06:52)
[2020-08-08] MEDS ORDERED: PROPOFOL 10 MG/ML (20ML) VIAL. IV ONE (06:52)
[2020-08-08] MEDS ORDERED: LIDOCAINE 2% PF 5 ML VIAL. ONE (06:52)
[2020-08-08] MEDS ORDERED: BUPIVACAINE-EPI 0.25% 30 ML VIAL KIT. ONE (06:59)
[2020-08-08] MEDS ORDERED: SEVOFLURANE 31 TO 60 MINUTES. IH ONE (07:34)
[2020-08-08] MEDS ORDERED: ONDANSETRON PF 4 MG/2 ML VIAL. ONE (07:34)
[2020-08-08] MEDS ORDERED: ePHEDrine PF IN SALINE 50 MG/10 ML SYRINGE. IV ONE (07:34)
[2020-08-08] MEDS ORDERED: DEXAMETHASONE SOD PHOS 4 MG/ML VIAL ONE (07:34)
--- NOTE | 2020-08-08 07:55 | PDOC4 ---
Operative Note Operative Note DATE: August 08, 2020 PREOPERATIVE DIAGNOSIS Carpal tunnel syndrome, left upper limb G56.02: POSTOPERATIVE DIAGNOSIS: Carpal tunnel syndrome, left upper limb G56.02 PROCEDURES PERFORMED: left wrist, open carpal tunnel release (neuroplasty of the median nerve at the carpal tunnel, CPT 75108 SURGEON: Wesly Pollock MD PALEOLOGY TEACHER: BHARGAVI Duke ANESTHESIA: General ESTIMATED BLOOD LOSS: 10 mL SPECIMENS: none DRAINS: none COMPLICATIONS: none TOURNIQUET: 6 minutes at 250 mm Hg INDICATIONS FOR PROCEDURE: The patient is a 65-year-old with left hand pain and numbness. EMG confirms carpal tunnel syndrome. The patient and I discussed carpal tunnel release surgery along with the potential risks of infection, neurovascular injury, bleeding, persistent or recurrent carpal tunnel syndrome, wound healing problems, or other surgical or anesthetic complications. All of the patients questions about surgery were answered and they desired to proceed. Written consent was obtained. DESCRIPTION OF OPERATION: The patient was identified in the preoperative holding area. The correct left hand was marked by me. The patient was taken to the operating room and positioned supine on the operating table with the left arm extended on an arm board. A tourniquet was placed on the upper left arm. Preoperative antibiotics were given intravenously. A timeout procedure was performed. The limb was prepared in sterile fashion with ChloraPrep solution and sterile drapes were applied. An Esmarch bandage was used to exsanguinate the limb and the tourniquet was inflated to 250 mmHg. A curvilinear incision was made with a 15 blade scalpel, 2mm ulnar to the thenar crease, using landmarks including the thenar crease, Kaplans cardinal line, the ulnar border of the fingernail of the ring finger, the wrist flexion crease, and the palmaris longus tendon. Care was made not to extend this incision beyond Kaplans cardinal line, so as to avoid arterial injury. Loupe magnification (3.5x extended field) was used throughout to prevent neurovascular injury. Sharp dissection was used through the subcutaneous tissues, and the palmaris longus tendon was retracted toward the thumb. Bipolar electrocautery was used for hemostasis. The transverse carpal ligament was identified and was divided under direct vision proximally and distally. Scissor dissection was used proximal to the wrist flexion crease to complete the proximal release of the transverse carpal ligament with the skin elevated away from the dissection. Digital palpation was used proximally and distally, ensuring a complete release. A gentle scissor neuroplasty was now performed along the ulnar aspect of the median nerve, releasing dense adhesions and dense synovium. The left median nerve was thinned. Care was made not to injure the motor branch on the radial aspect. Copious saline irrigation was used. The tourniquet was released. Bipolar electrocautery was used for hemostasis. The skin edges were injected with 0.25% bupivacaine with epinephrine. The skin edges were reapproximated with 3-0 Prolene horizontal mattress sutures. Needle and sponge counts were correct. Xeroform and a sterile dressing were applied. There were no apparent complications. The patient returned to the recovery room in stable condition. WESLY POLLOCK MD Aug 08, 2020 07:55
[2020-08-08] MEDS ORDERED: HYDROcodone/APAP 7.5/325MG 1 TAB TABLET PO PRN ×2 (08:30→08:45)
[2020-08-08] MEDS ORDERED: HYDROcodone/APAP 5/325MG 1 TAB TABLET PO ONE (09:00)
[2020-08-08 09:03] VITALS: BP 116/64
== END 2020-08-08 09:35 | disposition home or self-care (01) ==
LOC: SURG 06:10
PROVIDERS: ATTEND Orthopaedic Surgery
DX: G56.02 Carpal tunnel syndrome, left upper limb (principal); E78.00 Pure hypercholesterolemia, unspecified; I10 Essential (primary) hypertension; M19.90 Unspecified osteoarthritis, unspecified site; F17.210 Nicotine dependence, cigarettes, uncomplicated; Z79.899 Other long term (current) drug therapy; Z98.890 Other specified postprocedural states; Z72.89 Other problems related to lifestyle
CPT/HCPCS: 64721; J0690; J1100; J2405; J2704; J3010

== ENCOUNTER 2021-03-20 07:30 | Day surgery (SDC) | payer MEDICARE ==
[~2021-03-20] VITALS: Ht 165.1 cm; Wt 77.0 kg
[~2021-03-20 07:30] MED LIST changes: +ACETAMINOPHEN 500 MG TABLET PO PRN; +BUPIVACAINE-EPI 0.25%-1:200000 MPF 30 ML VIAL. ONE; -IV RINGERS,LACTATED 1000ML 1,000 ML IV SCH; +MORPHINE SULFATE 2 MG/ML INJ. IVP PRN; -MORPHINE SULFATE 2 MG/ML VIAL. IVP PRN; +ceFAZolin SODIUM IV Push 1 GM VIAL. IVP PRN
[2021-03-20] MEDS: IV RINGERS,LACTATED 1000ML 1,000 ML IV SCH ×2 (08:08→10:24)
[2021-03-20 08:10] VITALS: BP 138/68
[2021-03-20] MEDS ORDERED: DEXAMETHASONE SOD PHOS 4 MG/ML VIAL ONE (08:49)
[2021-03-20] MEDS ORDERED: ONDANSETRON PF 4 MG/2 ML VIAL. ONE (08:49)
[2021-03-20] MEDS ORDERED: SEVOFLURANE 61 TO 120 MINUTES. IH ONE (08:49)
[2021-03-20] MEDS ORDERED: fentaNYL PF VIAL 100 MCG/2 ML VIAL ONE (08:49)
[2021-03-20] MEDS ORDERED: PROPOFOL 10 MG/ML (20ML) VIAL. IV ONE (08:49)
[2021-03-20] MEDS ORDERED: ROCURONIUM 50 MG/5 ML VIAL. ONE (08:49)
[2021-03-20] MEDS ORDERED: LIDOCAINE 2% PF 5 ML VIAL. ONE (08:49)
--- NOTE | 2021-03-20 09:18 | PDOC1 ---
History and Physical Date of Admission Date of Admission DATE: 03/20/21 TIME: 09:13 Identification/Chief Complaint Chief Complaint Painful bulge at the umbilicus Source Source: Patient History of Present Illness History of Present Illness 66-year-old male with complaints of a painful bulge at the umbilicus for several years been getting larger now more painful Past Medical History Cardiovascular: HTN, Hyperlipidemia Pulmonary: No pertinent hx GI: No pertinent hx Heme/Onc: No pertinent hx Hepatobiliary: No pertinent hx Psych: No pertinent hx Musculoskeletal: low back pain Rheumatologic: Rheumatoid arthritis Infectious disease: No pertinent hx ENT: No pertinent hx Renal/: Benign prostatic enlarg. Endocrine: No pertinent hx Dermatology: No pertinent hx Past Surgical History Past Surgical History: Total knee replacement, Other (Hemorrhoidectomy, carpal tunnel release) Family History Family History: No Significant Social History Smoke: No ALCOHOL: none Drugs: None Current Medications Current Medications Current Medications Fentanyl Citrate (Fentanyl 2ml Vial) 25 mcg PRN Q5MIN PRN IVP MILD PAIN 1-3; Start 03/20/21 at 06:00; Stop 03/20/21 at 20:00 Fentanyl Citrate (Fentanyl 2ml Vial) 50 mcg PRN Q5MIN PRN IVP MODERATE PAIN 4- 6; Start 03/20/21 at 06:00; Stop 03/20/21 at 20:00 Morphine Sulfate (Morphine Sulfate) 1 mg PRN Q10MIN PRN IVP SEVERE PAIN 7-10; Start 03/20/21 at 06:00; Stop 03/20/21 at 20:00 Ringer's Solution 1,000 ml @ 30 mls/hr Q24H IV Last administered on 03/20/21at 08:08; Start 03/20/21 at 06:00; Stop 03/20/21 at 17:59 Hydromorphone HCl (Dilaudid) 0.5 mg PRN Q10MIN PRN IVP SEVERE PAIN 7-10, 2nd CHOICE; Start 03/20/21 at 06:00; Stop 03/20/21 at 20:00 Prochlorperazine Edisylate (Compazine) 5 mg PACU PRN PRN IVP NAUSEA, MRX1; Start 03/20/21 at 06:00; Stop 03/20/21 at 20:00 Acetaminophen (Tylenol) 1,000 mg 1X PREOP PRN PO PRIOR TO PROCEDURE Last administered on 03/20/21at 08:08; Start 03/20/21 at 06:00; Stop 03/20/21 at 18:00 Cefazolin Sodium (Ancef) 1 gm 1X PREOP PRN IVP PRIOR TO PROCEDURE; Start 03/20/21 at 06:00; Stop 03/20/21 at 18:00 Bupivacaine HCl/ Epinephrine Bitart (Sensorcaine-Epi 0.25%-1:514667 Mpf) 30 ml STK-MED ONCE .ROUTE ; Start 03/20/21 at 07:15; Stop 03/20/21 at 07:16; Status DC Fentanyl Citrate (Fentanyl 2ml Vial) 100 mcg STK-MED ONCE .ROUTE ; Start 03/20/21 at 08:49; Stop 03/20/21 at 08:49; Status DC Rocuronium Orange (Zemuron) 50 mg STK-MED ONCE .ROUTE ; Start 03/20/21 at 08:49; Stop 03/20/21 at 08:50; Status DC Lidocaine HCl (Lidocaine Pf 2% Vial) 5 ml STK-MED ONCE .ROUTE ; Start 03/20/21 at 08:49; Stop 03/20/21 at 08:50; Status DC Propofol (Diprivan) 200 mg STK-MED ONCE IV ; Start 03/20/21 at 08:49; Stop 03/20/21 at 08:50; Status DC Ondansetron HCl (Zofran) 4 mg STK-MED ONCE .ROUTE ; Start 03/20/21 at 08:49; Stop 03/20/21 at 08:50; Status DC Dexamethasone Sodium Phosphate (Decadron) 4 mg STK-MED ONCE .ROUTE ; Start 03/20/21 at 08:49; Stop 03/20/21 at 08:50; Status DC Sevoflurane (Ultane) 60 ml STK-MED ONCE IH ; Start 03/20/21 at 08:49; Stop 03/20/21 at 08:50; Status DC Active Scripts Active Reported Losartan Potassium 100 Mg Tablet 100 Mg PO DAILY Hydrochlorothiazide Capsule (Hydrochlorothiazide) 12.5 Mg Capsule 12.5 Mg PO DAILY Multivitamins (Multivitamin) 1 Each Tablet 1 Each PO DAILY Simvastatin 10 Mg Tablet 20 Mg PO QHS Allergies Allergies: Coded Allergies: No Known Drug Allergies (Unverified , 03/18/21) ROS Gastrointestinal: Yes Abdominal Pain Physical Exam General: Alert, Oriented X3, Cooperative, No acute distress HEENT: Atraumatic, EOMI Lungs: Clear to auscultation, Normal air movement Heart: RRR, no murmurs Rectal Exam: not examined Extremities: No edema Skin: No significant lesion Neuro: Normal speech Psych/Mental Status: Mental status NL Vitals Vitals Vital Signs Date Time Temp Pulse Resp B/P (MAP) Pulse Ox O2 Delivery O2 Flow Rate FiO2 03/20/21 08:10 98.4 67 98 98.4 03/20/21 07:57 14 138/68 Room Air VTE Prophylaxis Ordered VTE Prophylaxis Devices: Yes VTE Pharmacological Prophylaxi: Contraindicated Assessment/Plan Assessment/Plan Umbilical hernia plan repair Justifications for Admission Other Justification NOELLE MCFADDEN MD Mar 20, 2021 09:18
[2021-03-20] MEDS ORDERED: PHENYLEPHRINE in 0.9% NACL PF 1 MG/10 ML SYRINGE. IV ONE (09:39)
[2021-03-20] MEDS ORDERED: BUPIVACAINE-EPI 0.25%-1:200000 MPF 30 ML VIAL. INJ ONE (09:45)
--- NOTE | 2021-03-20 09:45 | PDOC4 ---
Operative Note Operative Note Date: March 202020 at 944 Preoperative diagnosis: Umbilical hernia Postoperative diagnosis: Same Procedure: Umbilical hernia repair Surgeon: Mauricio Specimen: None Dictation: Patient is a 66-year-old male with complaints of painful bulge at his umbilicus. The procedure of umbilical hernia repair was explained to the patient detail risk-benefit were also discussed including bleeding infection alternatives to this procedure also discussed with patient who seemed to understand and gave a verbal written consent to have procedure performed. Patient was taken to the operating room placed in the supine position general anesthesia was initiated once patient was sleeping in bed his abdomen was prepp ed and draped usual sterile fashion using ChloraPrep. An area just above the umbilicus was injected with quarter percent Marcaine with epinephrine incision was made with 10 blade scalpel this carried down through the subcutaneous tissue using electrocautery right hemostasis and excised the hernia sac and contents. The hernia defect was then closed with [id number]-[id number] 0 Vicryl suture deep subcutaneous layer of 3-0 Vicryl and a skin was reapproximated for subcuticular Monocryl Mastisol Steri-Strips and island dressings were applied. Patient was awakened extubated operating room taken to recovery in stable condition all sponge instrument needle counts listed as correct estimated blood loss 5 mL NOELLE MCFADDEN MD Mar 20, 2021 09:45
[2021-03-20] MEDS ORDERED: GLYCOPYRROLATE 1 MG/5 ML VIAL. ONE (09:47)
[2021-03-20] MEDS ORDERED: OXYC-325 PO (09:47)
--- NOTE | 2021-03-20 09:50 | DISCH ---
DISCHARGE INSTRUCTIONS Condition on Discharge Condition on Discharge: Stable Activity After Discharge Activity Instructions for Disc: Avoid exertion Other activity instructions: No lifting more than 20 pounds for 2 weeks Diet after Discharge Diet after Discharge: Regular Wound Incision Care Other wound/incision instructi: May shower in 24 hours Contacting the DRElaine after DC Call your doctor for: If your condition worsens Follow-Up Follow up with: Dr. Mcfadden in 2 weeks NOELLE MCFADDEN MD Mar 20, 2021 09:50
[2021-03-20] MEDS ORDERED: oxyCODONE/APAP 5/325 1 TAB TABLET PO ONE (10:15)
[2021-03-20 11:00] VITALS: BP 148/89
== END 2021-03-20 11:41 | disposition home or self-care (01) ==
LOC: SURG 07:30
PROVIDERS: ATTEND Surgery
DX: K42.9 Umbilical hernia without obstruction or gangrene (principal); I10 Essential (primary) hypertension; E78.00 Pure hypercholesterolemia, unspecified; M19.90 Unspecified osteoarthritis, unspecified site; F17.210 Nicotine dependence, cigarettes, uncomplicated; Z79.899 Other long term (current) drug therapy; Z98.890 Other specified postprocedural states; Z72.89 Other problems related to lifestyle
CPT/HCPCS: 49585; A4215; A4930; A6258; J0690; J1100; J2370; J2405; J2704; J3010; J3490

== ENCOUNTER → 2021-07-02 | Outpatient (CLI) | payer MEDICARE ==
[~2021-07-02] MED LIST changes: -ACETAMINOPHEN 500 MG TABLET PO PRN; -BUPIVACAINE-EPI 0.25%-1:200000 MPF 30 ML VIAL. ONE; -HYDROmorphone 2 MG/ML VIAL IVP PRN; -LISI-517 PO; +LISI5TAB15 PO; -MORPHINE SULFATE 2 MG/ML INJ. IVP PRN; +OXYC-325 PO; -PROCHLORPERAZINE 10 MG/2 ML VIAL. IVP PRN; -ceFAZolin SODIUM IV Push 1 GM VIAL. IVP PRN; -fentaNYL PF VIAL 100 MCG/2 ML VIAL IVP PRN
--- NOTE | 2021-07-03 10:15 | CARD ---
MR#: [id number] Date of Study: 07/02/2021 Ordering Physician: GERA SHIN, Referring Physician: GERA SHIN Tech: Jewels Jacob LILY APPROVED REPORT EXAM: Two-dimensional and M-mode echocardiogram with Doppler and color Doppler. Other Information Quality : GoodHR: 60bpm Rhythm : NSR INDICATION Hypertension/HCVD RISK FACTORS Hypertension 2D DIMENSIONS RVDd3.7 (2.9-3.5cm)Left Atrium(2D)3.5 (1.6-4.0cm) IVSd1.0 (0.7-1.1cm)Aortic Root(2D)3.4 (2.0-3.7cm) LVDd4.4 (3.9-5.9cm)LVOT Diameter2.1 (1.8-2.4cm) PWd1.0 (0.7-1.1cm)LVDs2.0 (2.5-4.0cm) FS (%) 54.9 %SV76.0 ml Aortic Valve AoV Peak Bishnu.119.6cm/sAoV VTI27.6cm AO Peak GR.5.7mmHgLVOT Peak Bishnu.105.7cm/s AO Mean GR.3mmHgAVA (VMAX)3.13cm2 Mitral Valve MV E Avarhwbn78.7cm/sMV DECEL AWHW068wp MV A Wwsdkbcj86.1cm/sE/A Ratio1.2 Pulmonary Valve PV Peak Jyfbyxmd678.8cm/s Tricuspid Valve TR P. Fnndyqoc588eb/sTR Peak Gr.23mmHg LEFT VENTRICLE The left ventricle is normal size. There is borderline to mild concentric left ventricular hypertroph y. The left ventricular systolic function is normal and the ejection fraction is within normal range. LV ejection fraction of 55 -60%. There is normal LV segmental wall motion. The left ventricular oscar stolic function and filling is normal for age. RIGHT VENTRICLE The right ventricle is normal size. There is normal right ventricular wall thickness. The right ventr icular systolic function is normal. ATRIA The left atrium size is normal. The right atrium size is normal. The interatrial septum is intact wit h no evidence for an atrial septal defect or patent foramen ovale as noted on 2-D or Doppler imaging. AORTIC VALVE The aortic valve is normal in structure and function. Doppler and Color Flow revealed no significant aortic regurgitation. There is no significant aortic valvular stenosis. MITRAL VALVE The mitral valve is normal in structure and function. There is no evidence of mitral valve prolapse. There is no mitral valve stenosis. Doppler and Color-flow revealed trace mitral regurgitation. TRICUSPID VALVE The tricuspid valve is normal in structure and function. Doppler and Color Flow revealed trace tricus pid regurgitation. Estimated PAP 28 mmHg. There is no tricuspid valve stenosis. PULMONIC VALVE The pulmonary valve is normal in structure and function. Doppler and Color Flow revealed mild pulmoni c valvular regurgitation. GREAT VESSELS The aortic root is normal in size. The ascending aorta is normal in size. The IVC is normal in size a nd collapses >50% with inspiration. PERICARDIAL EFFUSION There is no evidence of significant pericardial effusion. Critical Notification Critical Value: No <Conclusion> The left ventricle is normal size. The left ventricular systolic function is normal and the ejection fraction is within normal range. LV ejection fraction of 55 -60%. There is borderline to mild concentric left ventricular hypertrophy. Doppler and Color Flow revealed no significant aortic regurgitation. There is no significant aortic valvular stenosis. Doppler and Color-flow revealed trace mitral regurgitation. Doppler and Color Flow revealed trace tricuspid regurgitation. Estimated PAP 28 mmHg. Signed by : Lucien Rubio MD Electronically Approved : 07/03/2021 10:15:20
== END ==
LOC: ECHO 10:48
PROVIDERS: ATTEND Internal Medicine Cardiovascular Disease
DX: I37.1 Nonrheumatic pulmonary valve insufficiency (principal); I51.7 Cardiomegaly; I10 Essential (primary) hypertension
CPT/HCPCS: 93306; C8929